=== PATIENT | male | born 1970 | race African-American/Black ===

== ENCOUNTER 2018-06-21 15:37 | Emergency (ER) | payer OTHER ==
[2018-06-21 15:44] VITALS: BP 126/75; PULSE 86; TEMP 99.9; BMI 34.8
[2018-06-21] MEDS ORDERED: CLINDAMYCIN HCL 300 MG CAPSULE PO ONE (16:07)
[2018-06-21] MEDS ORDERED: IBUPROFEN 100 MG/5 ML UNIT DOSE CUPS PO ONE (16:07)
--- NOTE | 2018-06-21 16:07 | PDOC ---
History of Present Illness - General Chief Complaint: Sore Throat Stated Complaint: SORE THROAT Time Seen by Provider: 06/21/18 15:44 History Source: Patient Exam Limitations: No Limitations - History of Present Illness Initial Comments: 06/21/18 16:21 Patient came for evaluation of swelling to his face, and sore throat pain that progressively worsened over the past few days. Denies fever, denies any earache no one at home is sick. Denies dental pain or injury. States noted swelling to his right jaw this morning. Timing/Duration: unsure, 24 hours Severity: mild, moderate Associated Symptoms: denies: cough, fever/chills Past History - Travel Traveled outside of the country in the last 30 days: No Close contact w/someone who was outside of country & ill: No - Past Medical History Allergies/Adverse Reactions: Allergies Allergy/AdvReac Type Severity Reaction Status Date / Time No Known Allergies Allergy Verified 06/21/18 15:43 Home Medications: Ambulatory Orders Amlodipine Besylate 10 mg PO DAILY 06/21/18 Aspirin [ASA -] 81 mg PO DAILY 06/21/18 Carvedilol 25 mg PO BID 06/21/18 Cholecalciferol (Vitamin D3) [Vitamin D3] 1,000 unit PO DAILY 06/21/18 Clindamycin HCl 300 mg PO Q8H #21 capsule 06/21/18 Furosemide 20 mg PO ASDIR 06/21/18 Gemfibrozil 600 mg PO BID 06/21/18 Glipizide 5 mg PO DAILY 06/21/18 Ibuprofen Oral Suspension [Motrin Oral Suspension -] 400 mg PO Q6H PRN #120 ml 06/21/18 Lisinopril [Prinivil -] 40 mg PO DAILY 06/21/18 Simvastatin 20 mg PO DAILY 06/21/18 Cardiac Disorders: Yes CVA: Yes (lt sided weakness) COPD: No Diabetes: Yes HTN: Yes Hypercholesterolemia: Yes - Suicide/Smoking/Psychosocial Hx Smoking History: Former smoker Have you smoked in the past 12 months: No Number of Cigarettes Smoked Daily: 7 If you are a former smoker, when did you quit?: 7 yrs ago Information on smoking cessation initiated: No Substance Use Type: Marijuana Review of Systems - Review of Systems Able to Perform ROS?: Yes Is the patient limited Fijian proficient: Yes Constitutional: Yes: Symptoms Reported, See HPI, Fever, Loss of Appetite, Malaise HEENTM: Yes: Symptoms Reported, See HPI, Throat Pain, Dental Problems, Difficulty Swallowing Respiratory: Yes: See HPI. No: Symptoms reported, Cough, Wheezing Integumentary: Yes: See HPI. No: Symptoms Reported Neurological: Yes: See HPI. No: Symptoms reported, Headache All Other Systems: Reviewed and Negative *Physical Exam - Vital Signs Last Vital Signs Temp Pulse Resp BP Pulse Ox 99.9 F H 86 18 126/75 98 06/21/18 15:39 06/21/18 15:39 06/21/18 15:39 06/21/18 15:39 06/21/18 15:39 - Physical Exam General Appearance: Yes: Nourished, Appropriately Dressed, Apparent Distress, Mild Distress HEENT: positive: LEE ANN, TMs Normal, Muffled/Hoarse voice (uvula is midline, no obvious abscess noted in posterior pharynx or tonsillar area), Tonsillar Erythema, Nasal Congestion, Rhinorrhea, Other (with pain and swelling/ tenderness to right submandibular nodes/ and eroded right lower 1st molar) Neck: positive: Tender, Supple, Lymphadenopathy (R), Lymphadenopathy (L) Respiratory/Chest: positive: Lungs Clear, Normal Breath Sounds Cardiovascular: positive: Regular Rate Musculoskeletal: positive: Normal Inspection Extremity: positive: Normal Capillary Refill Integumentary: positive: Normal Color, Dry, Warm, Pale 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 use ibuprofen 06/21/18 20:39 [facility] notified of positive strep test, however clindamycin will cover same and patient understands. Has received a prescription from pharmacy able take second dose tonight before bed *DC/Admit/Observation/Transfer Diagnosis at time of Disposition: Dental abscess - Discharge Dispostion Disposition: HOME Condition at time of disposition: Stable Decision to Admit order: No - Prescriptions Prescriptions: Clindamycin HCl 300 mg PO Q8H #21 capsule Ibuprofen Oral Suspension [Motrin Oral Suspension -] 400 mg PO Q6H PRN #120 ml PRN Reason: fevers - Referrals Referrals: Magaly Edouard MD [Primary Care Provider] - - Patient Instructions Printed Discharge Instructions: Tooth Abscess Additional Instructions: Rest, drink lots of fluids: Teas, water, soups Saltwater gargles/ keep mouth clean and rinse after each meal May use wet teabag for pain relief to area Avoid hard chewing foods, stick to ice cream, Jell-O, yogurt etc. Tylenol or Motrin for fever and pain Complete all medication as prescribed Seek dental appointment as soon as possible for evaluation of dental injury/pain Followup with private physician in one to 2 days as needed Return to emergency department for worsened symptoms, fevers, swelling to face or worsened pain - Post Discharge Activity
[2018-06-21] MEDS ORDERED: IBUPROFEN 100 MG/5 ML UNIT DOSE CUPS ONE (16:08)
[2018-06-21] MEDS ORDERED: CLINDAMYCIN HCL 150 MG CAPSULE (FP) ONE (16:08)
== END 2018-06-21 16:17 | disposition home or self-care (01) ==
LOC: JERFT 15:37
DX: K04.7 Periapical abscess without sinus (principal); E11.9 Type 2 diabetes mellitus without complications; I10 Essential (primary) hypertension; Z87.891 Personal history of nicotine dependence
CPT/HCPCS: 87070; 87430; 99281-25